=== PATIENT | female | born 1990 | race Caucasian/White ===

== ENCOUNTER 2025-09-15 19:29 | Emergency (ER) | payer OTHER ==
[~2025-09-15] VITALS: Ht 160 cm; Wt 50.8 kg
[2025-09-15] MEDS ORDERED: ONDA4TAB5 PO (20:19)
[2025-09-15 20:27] VITALS: BP 126/85; TEMP 98.4; O2SAT 98
== END 2025-09-15 20:27 | disposition home or self-care (01) ==
LOC: ER 19:36
DX: R00.2 Palpitations (principal); R11.0 Nausea; R73.9 Hyperglycemia, unspecified; Z91.040 Latex allergy status; Z88.5 Allergy status to narcotic agent; Z60.2 Problems related to living alone
CPT/HCPCS: 82962-TC